=== PATIENT | female | born 1955 | race Caucasian/White ===

== ENCOUNTER 2022-08-15 13:34 | Emergency (ER) | payer BC | END 2022-08-15 14:40 | disposition home or self-care (01) | LOC: DL.ED 13:34 | DX: S82.041A Displaced comminuted fracture of right patella, initial encounter for closed fracture (principal); W01.0XXA Fall on same level from slipping, tripping and stumbling without subsequent striking against object, initial encounter | CPT/HCPCS: 73562-RT; 99283 ==